=== PATIENT | male | born 1955 | race Hispanic/Latino ===

== ENCOUNTER 2019-03-29 10:43 | Emergency (ER) | payer BC, SELFPAY ==
[2019-03-29] MEDS ORDERED: Acetaminophen 500 MG TAB ONE (11:36)
--- NOTE | 2019-03-29 11:51 | RAD ---
PA AND LATERAL VIEWS CHEST: HISTORY: Neck pain, back pain, trauma. FINDINGS: Comparison is made with the exam of 11/17/2013. There are changes of median sternotomy. The heart is enlarged. The lungs are expanded without lobar consolidation, pneumothoraces, or pleural effusions. There is no evidence of duke pulmonary edema. No acute osseous abnormalities are seen. IMPRESSION: No acute process. POS: [facility]
== END 2019-03-29 12:11 | disposition home or self-care (01) ==
LOC: ERS 10:43
DX: S16.1XXA Strain of muscle, fascia and tendon at neck level, initial encounter (principal); S29.012A Strain of muscle and tendon of back wall of thorax, initial encounter; I10 Essential (primary) hypertension; Z87.891 Personal history of nicotine dependence; V89.2XXA Person injured in unspecified motor-vehicle accident, traffic, initial encounter
CPT/HCPCS: 71046

== ENCOUNTER 2021-04-10 11:17 | Inpatient (IN) | payer SELFPAY ==
[~2021-04-10 11:17] MED LIST: Iopamidol 370 76% 100 ML VIAL ONE
[2021-04-10] MEDS ORDERED: Cefepime 2 GM VIAL ONE (11:51)
[2021-04-10 11:58] LABS: Hemoglobin 13.2 g/dL (14.0-18.0); Mean Corpuscular HGB CONC 35.5 g/dL (32.0-36.0); Mean Corpuscular Hemoglobin 35.2 pg (27.0-31.0); Mean Corpuscular Volume 99.2 fL (78.0-98.0); Mean Platelet Volume 7.9 fL (7.4-10.4); Platelet Count 205 thou/uL (130-400); RBC Distribution Width 11.2 % (11.5-14.5); Red Blood Cell (RBC) Count 3.76 mill/uL (4.70-6.10); White Blood Cell (WBC) Count 17.8 thou/uL (4.8-10.8)
[2021-04-10] MEDS ORDERED: metroNIDAZOLE 500 MG in Premix Bag 1 BAG IVPB SCH (12:00)
[2021-04-10] MEDS ORDERED: VANCOMYCIN 2 GRAM/400 ML BAG 2 GM in Premix Bag 1 BAG IVPB SCH (12:00)
[2021-04-10 12:16] LABS: Band 29 % (5-11); Eosinophils 1 % (0-10); Lymphocytes 2 % (21-51); MDiff Complete? YES; Monocytes 6 % (0-10); Neutrophil 62 % (42-75); RBC Morphology Normal
[2021-04-10 12:19] LABS: ALT (SGPT) 10 U/L (8-55); AST (SGOT) 9 U/L (5-34); Alkaline Phosphatase 77 U/L (40-110); Anion Gap 20 mmol/L (10-20); BUN (Urea Nitrogen) 40 mg/dL (8.4-25.7); Bilirubin, Total 1.4 mg/dL (0.2-1.2); Calc. Creatinine Clearance 0 mL/min (70-130); Calcium 9.3 mg/dL (7.8-10.44); Carbon Dioxide 22 mmol/L (23-31); Chloride 88 mmol/L (98-107); Globulin 3.5 g/dL (2.4-3.5); Potassium 4.7 mmol/L (3.5-5.1); Protein, Total 7.5 g/dL (5.8-8.1); Sodium 125 mmol/L (136-145)
[2021-04-10 12:30] LABS: Glucose 627 mg/dL (80-115)
[2021-04-10] MEDS ORDERED: Insulin Regular 300 UNITS/3 ML VIAL ONE (13:40)
[2021-04-10 14:50] LABS: Bilirubin Negative (Negative); Blood, Urine Negative (Negative); Clarity Clear (Clear); Glucose, Urine (Dipstick) Greater than 1000 mg/dL (Negative); Ketone, Urine Negative (Negative); Leukocyte Negative Leu/uL (Negative); Nitrite Negative (Negative); Protein, Urine (Dipstick) 20 mg/dL (Neg-Trace); Specific Gravity, Urine 1.022 (1.002-1.036); Urobilinogen Normal mg/dL (Less than 2)
[2021-04-10] MEDS ORDERED: Midazolam HCl 2 mg/2 ml Vial ONE (16:12)
[2021-04-10] MEDS ORDERED: Fentanyl 100 MCG/2 ML VIAL ONE (16:12)
[2021-04-10 16:16] LABS: SARS-CoV-2 NAA Rapid Test Not Detected (NotDetected)
[2021-04-10] MEDS ORDERED: Bupivacaine 0.25% HCL 30 ML VIAL ONE (16:22)
[2021-04-10] MEDS ORDERED: PROPOFOL 200 MG/20 ML VIAL ONE (16:44)
[2021-04-10] MEDS ORDERED: Metoclopramide HCl 10 MG/2 ML VIAL ONE (16:44)
[2021-04-10] MEDS ORDERED: Ondansetron PF 4 MG/2 ML Vial ONE (16:44)
[2021-04-10] MEDS ORDERED: Succinylcholine 200 MG/10 ml SYRINGE FS ONE (16:44)
[2021-04-10] MEDS ORDERED: PHENYLEPHRINE-NS 100 MCG/ML 10 ML SYRINGE ONE (16:44)
[2021-04-10] MEDS ORDERED: ePHEDrine 50 MG/ML VIAL ONE (16:44)
[2021-04-10] MEDS ORDERED: Lidocaine 1% PF 5 ML VIAL ONE (16:44)
[2021-04-10] MEDS ORDERED: Metoprolol Tartrate 5 MG/5 ML VIAL ONE (16:44)
[2021-04-10] MEDS ORDERED: Promethazine HCl 25 MG/ML VIAL IM PRN (18:36)
[2021-04-10] MEDS ORDERED: Promethazine HCl 25 MG/ML VIAL IVPB PRN (18:36)
[2021-04-10] MEDS ORDERED: Ondansetron HCl/PF 4 MG/2 ML Vial IVP PRN (18:36)
[2021-04-10] MEDS ORDERED: Dextrose 5% in Water 1,000 ML IV PRN (20:08)
[2021-04-10] MEDS ORDERED: Dextrose 50% Abboject 50 ML SYRINGE SLOW IVP PRN (20:08)
[2021-04-10] MEDS ORDERED: HumaLOG 300 UNITS/3 ML VIAL SC PRN ×2 (20:08)
[2021-04-10] MEDS ORDERED: Acetaminophen 650 MG Suppository PR PRN (20:12)
[2021-04-10] MEDS ORDERED: Ondansetron ODT 4 MG TAB PO PRN (20:12)
[2021-04-10] MEDS ORDERED: Ondansetron PF 4 MG/2 ML Vial IVP PRN (20:12)
[2021-04-10] MEDS ORDERED: Piperacillin/Tazobactam 3.375 GM in Sodium Chloride 0.9% 100 ML IVPB SCH ×2 (20:15→21:15)
[2021-04-10] MEDS ORDERED: HumaLOG 300 UNITS/3 ML VIAL ONE (20:21)
[2021-04-10] MEDS ORDERED: Piperacillin/Tazobactam 3.375 GM VIAL ONE (20:23)
[2021-04-10] MEDS ORDERED: Sodium Chloride 0.9% 100 ML ONE (20:27)
[2021-04-10] MEDS: Sodium Chloride 0.9% 1,000 ML IV SCH (20:34)
[2021-04-10 20:41] LABS: Lactic Acid 1.8 mmol/L (0.5-2.2)
[2021-04-10 20:53] LABS: Albumin 3.1 g/dL (3.4-4.8); Alkaline Phosphatase 59 U/L (40-110); Anion Gap 18 mmol/L (10-20); BUN (Urea Nitrogen) 33 mg/dL (8.4-25.7); Bilirubin, Total 0.8 mg/dL (0.2-1.2); Calc. Creatinine Clearance 65 mL/min (70-130); Calcium 8.2 mg/dL (7.8-10.44); Carbon Dioxide 19 mmol/L (23-31); Chloride 99 mmol/L (98-107); Globulin 2.7 g/dL (2.4-3.5); Glucose 351 mg/dL (80-115); Potassium 4.4 mmol/L (3.5-5.1); Protein, Total 5.8 g/dL (5.8-8.1); Sodium 132 mmol/L (136-145)
[2021-04-10 20:54] LABS: ALT (SGPT) 10 U/L (8-55); AST (SGOT) 10 U/L (5-34); Band 28 % (5-11); Hemoglobin 10.7 g/dL (14.0-18.0); Lymphocytes 3 % (21-51); MDiff Complete? YES; Macrocytosis SLIGHT = 6-15 cells (100X) (0-5/hpf); Mean Corpuscular HGB CONC 34.6 g/dL (32.0-36.0); Mean Corpuscular Hemoglobin 34.8 pg (27.0-31.0); Mean Platelet Volume 7.5 fL (7.4-10.4); Metamyelocyte 2 % (0-0); Monocytes 11 % (0-10); Myelocyte 1 % (0-0); Neutrophil 54 % (42-75); Platelet Count 160 thou/uL (130-400); Platelet Morphology Comment Appears Adequate; RBC Distribution Width 11.2 % (11.5-14.5); Reactive Lymphocytes 1 % (0-10); Red Blood Cell (RBC) Count 3.08 mill/uL (4.70-6.10); White Blood Cell (WBC) Count 12.2 thou/uL (4.8-10.8)
[2021-04-10 20:55] LABS: Toxic Granulation SLIGHT; Vacuoles SLIGHT
[2021-04-11] MEDS: Piperacillin/Tazobactam 3.375 GM in Sodium Chloride 0.9% 100 ML IVPB SCH ×3 (01:13→17:52)
[2021-04-11 04:37] LABS: Anion Gap 17 mmol/L (10-20); BUN (Urea Nitrogen) 29 mg/dL (8.4-25.7); Calc. Creatinine Clearance 68 mL/min (70-130); Carbon Dioxide 18 mmol/L (23-31); Chloride 101 mmol/L (98-107); Glucose 278 mg/dL (80-115); Potassium 3.8 mmol/L (3.5-5.1); Sodium 132 mmol/L (136-145)
[2021-04-11 04:50] LABS: Band 32 % (5-11); Hemoglobin 10.5 g/dL (14.0-18.0); Lymphocytes 11 % (21-51); MDiff Complete? YES; Mean Corpuscular HGB CONC 33.4 g/dL (32.0-36.0); Mean Corpuscular Hemoglobin 33.6 pg (27.0-31.0); Mean Platelet Volume 7.6 fL (7.4-10.4); Monocytes 8 % (0-10); Neutrophil 49 % (42-75); Platelet Count 168 thou/uL (130-400); Platelet Morphology Comment Appears Adequate; RBC Distribution Width 11.3 % (11.5-14.5); Red Blood Cell (RBC) Count 3.13 mill/uL (4.70-6.10); White Blood Cell (WBC) Count 10.3 thou/uL (4.8-10.8)
[2021-04-11] MEDS: Sodium Chloride 0.9% 1,000 ML IV SCH ×2 (07:42→17:56)
[2021-04-11] MEDS: Acetaminophen 325 MG TAB PO PRN ×2 (11:43→20:51)
[2021-04-11] MEDS ORDERED: Dextrose 5% in Water 1,000 ML IV PRN (12:35)
[2021-04-11] MEDS ORDERED: Dextrose 50% Abboject 50 ML SYRINGE SLOW IVP PRN (12:35)
[2021-04-11] MEDS: VANCOMYCIN 1.75 GM/350 ML BAG 1.75 GM in Premix Bag 1 BAG IVPB SCH (14:46)
[2021-04-11] MEDS: HumaLOG 300 UNITS/3 ML VIAL SC PRN ×2 (17:50→20:51)
[2021-04-12] MEDS: Piperacillin/Tazobactam 3.375 GM in Sodium Chloride 0.9% 100 ML IVPB SCH ×3 (00:54→17:39)
[2021-04-12] MEDS: Sodium Chloride 0.9% 1,000 ML IV SCH (01:02)
[2021-04-12] MEDS: HumaLOG 300 UNITS/3 ML VIAL SC PRN ×3 (06:21→21:12)
[2021-04-12] MEDS: Morphine 4 MG/ML VIAL SLOW IVP PRN ×2 (06:37→12:17)
[2021-04-12 08:02] LABS: #Eosinphils 0.2 thou/uL (0.0-0.7); #Lymphocytes 1.1 thou/uL (1.20-3.40); #Neutrophils 9.3 thou/uL (1.40-6.50); %Basophils 0.4 % (0.0-1.0); %Eosinophils 1.5 % (0.0-10.0); %Lymphocytes 9.5 % (21.0-51.0); %Monocytes 8.3 % (0.0-10.0); %Neutrophils 80.3 % (42.0-75.0); Hemoglobin 10.7 g/dL (14.0-18.0); Mean Corpuscular HGB CONC 34.4 g/dL (32.0-36.0); Mean Corpuscular Hemoglobin 34.7 pg (27.0-31.0); Mean Platelet Volume 7.8 fL (7.4-10.4); Platelet Count 207 thou/uL (130-400); RBC Distribution Width 11.3 % (11.5-14.5); Red Blood Cell (RBC) Count 3.09 mill/uL (4.70-6.10); White Blood Cell (WBC) Count 11.6 thou/uL (4.8-10.8)
[2021-04-12 08:18] LABS: Anion Gap 15 mmol/L (10-20); BUN (Urea Nitrogen) 23 mg/dL (8.4-25.7); Calc. Creatinine Clearance 82 mL/min (70-130); Calcium 8.1 mg/dL (7.8-10.44); Carbon Dioxide 21 mmol/L (23-31); Chloride 105 mmol/L (98-107); Glucose 231 mg/dL (80-115); Potassium 3.8 mmol/L (3.5-5.1); Sodium 137 mmol/L (136-145)
[2021-04-12] MEDS ORDERED: FLU VACC QS2021-22(6MOS UP)/PF 60 MCG/0.5 ML SYRINGE IM ONE (09:00)
[2021-04-12] MEDS: Acetaminophen 325 MG TAB PO PRN (09:51)
[2021-04-12] MEDS: Lantus 1000 UNITS/10 ML VIAL SC SCH (12:18)
[2021-04-12] MEDS: VANCOMYCIN 1.25 GM/250 ML BAG 1.25 GM in Premix Bag 1 BAG IVPB SCH (15:40)
[2021-04-12] MEDS ORDERED: Lidocaine 4% Topical Sol 50 ML BOT TOP PRN (17:11)
[2021-04-12] MEDS: Carvedilol 3.125 MG TAB PO SCH (21:11)
[2021-04-12] MEDS: Simvastatin 5 MG TAB PO SCH (21:11)
[2021-04-13] MEDS: Piperacillin/Tazobactam 3.375 GM in Sodium Chloride 0.9% 100 ML IVPB SCH ×3 (01:14→17:26)
[2021-04-13] MEDS: VANCOMYCIN 1.25 GM/250 ML BAG 1.25 GM in Premix Bag 1 BAG IVPB SCH ×2 (01:14→13:06)
[2021-04-13 05:01] LABS: #Basophils 0.1 thou/uL (0.0-0.2); #Eosinphils 0.2 thou/uL (0.0-0.7); #Lymphocytes 1.9 thou/uL (1.20-3.40); #Monocytes 1.4 thou/uL (0.11-0.59); #Neutrophils 7.6 thou/uL (1.40-6.50); %Basophils 0.6 % (0.0-1.0); %Eosinophils 1.7 % (0.0-10.0); %Lymphocytes 16.9 % (21.0-51.0); %Monocytes 12.4 % (0.0-10.0); %Neutrophils 68.3 % (42.0-75.0); Hemoglobin 10.6 g/dL (14.0-18.0); Mean Corpuscular HGB CONC 34.9 g/dL (32.0-36.0); Mean Corpuscular Hemoglobin 35.1 pg (27.0-31.0); Mean Platelet Volume 7.4 fL (7.4-10.4); Platelet Count 224 thou/uL (130-400); RBC Distribution Width 11.4 % (11.5-14.5); White Blood Cell (WBC) Count 11.1 thou/uL (4.8-10.8)
[2021-04-13 05:27] LABS: Anion Gap 15 mmol/L (10-20); BUN (Urea Nitrogen) 19 mg/dL (8.4-25.7); Calc. Creatinine Clearance 85 mL/min (70-130); Calcium 8.2 mg/dL (7.8-10.44); Carbon Dioxide 21 mmol/L (23-31); Chloride 103 mmol/L (98-107); Glucose 214 mg/dL (80-115); Sodium 135 mmol/L (136-145)
[2021-04-13] MEDS: HumaLOG 300 UNITS/3 ML VIAL SC PRN ×4 (07:33→22:06)
[2021-04-13] MEDS: VANCOMYCIN 1.75 GM/350 ML BAG 1.75 GM in Premix Bag 1 BAG IVPB SCH (08:00)
[2021-04-13] MEDS: Lisinopril/Hydrochlorothiazide 20/25 mg Tablet PO SCH (08:15)
[2021-04-13] MEDS: Carvedilol 3.125 MG TAB PO SCH ×2 (08:16→20:29)
[2021-04-13] MEDS: Lantus 1000 UNITS/10 ML VIAL SC SCH (08:29)
[2021-04-13] MEDS: Morphine 4 MG/ML VIAL SLOW IVP PRN ×3 (09:17→20:29)
[2021-04-13] MEDS: cefTRIAXone\\ROCEPHIN 2 GM in Sodium Chloride 0.9% 100 ML IVPB SCH (17:59)
[2021-04-13] MEDS: metroNIDAZOLE 500 MG TAB PO SCH (20:29)
[2021-04-13] MEDS: Simvastatin 5 MG TAB PO SCH (20:29)
[2021-04-14 05:22] LABS: #Basophils 0.1 thou/uL (0.0-0.2); #Eosinphils 0.3 thou/uL (0.0-0.7); #Lymphocytes 1.5 thou/uL (1.20-3.40); #Neutrophils 5.6 thou/uL (1.40-6.50); %Basophils 0.9 % (0.0-1.0); %Eosinophils 3.3 % (0.0-10.0); %Lymphocytes 17.8 % (21.0-51.0); %Neutrophils 66.1 % (42.0-75.0); Hemoglobin 10.3 g/dL (14.0-18.0); Mean Corpuscular HGB CONC 32.7 g/dL (32.0-36.0); Mean Platelet Volume 7.7 fL (7.4-10.4); Platelet Count 219 thou/uL (130-400); RBC Distribution Width 11.5 % (11.5-14.5); Red Blood Cell (RBC) Count 3.13 mill/uL (4.70-6.10); White Blood Cell (WBC) Count 8.5 thou/uL (4.8-10.8)
[2021-04-14 06:00] LABS: Anion Gap 13 mmol/L (10-20); BUN (Urea Nitrogen) 18 mg/dL (8.4-25.7); Calc. Creatinine Clearance 106 mL/min (70-130); Calcium 8.4 mg/dL (7.8-10.44); Carbon Dioxide 23 mmol/L (23-31); Chloride 103 mmol/L (98-107); Glucose 188 mg/dL (80-115); Potassium 3.9 mmol/L (3.5-5.1); Sodium 135 mmol/L (136-145)
[2021-04-14] MEDS: Carvedilol 3.125 MG TAB PO SCH ×2 (08:21→21:21)
[2021-04-14] MEDS: Lantus 1000 UNITS/10 ML VIAL SC SCH (08:21)
[2021-04-14] MEDS: Lisinopril/Hydrochlorothiazide 20/25 mg Tablet PO SCH (08:21)
[2021-04-14] MEDS: metroNIDAZOLE 500 MG TAB PO SCH ×3 (08:21→21:21)
[2021-04-14] MEDS: Acetaminophen 325 MG TAB PO PRN (10:36)
[2021-04-14] MEDS: HumaLOG 300 UNITS/3 ML VIAL SC PRN ×3 (12:05→21:18)
[2021-04-14] MEDS: cefTRIAXone\\ROCEPHIN 2 GM in Sodium Chloride 0.9% 100 ML IVPB SCH (16:32)
[2021-04-14] MEDS ORDERED: Lantus 1000 UNITS/10 ML VIAL SC SCH (21:00)
[2021-04-14] MEDS: Enoxaparin Sodium 40 MG/0.4 ML SYRINGE SC SCH (21:18)
[2021-04-14] MEDS: Simvastatin 5 MG TAB PO SCH (21:21)
[2021-04-15] MEDS: HumaLOG 300 UNITS/3 ML VIAL SC PRN ×2 (05:58→17:30)
[2021-04-15] MEDS ORDERED: Senokot S 8.6-50 MG TAB PO PRN (07:52)
[2021-04-15] MEDS ORDERED: Artificial Tear Sol 15 ML BOT EA EYE PRN (07:52)
[2021-04-15] MEDS ORDERED: GUAIFENESIN SF SOLN 200 MG/10 ML UDCUP PO PRN (07:52)
[2021-04-15] MEDS ORDERED: Hydrocerin (Eucerin) Cream 120 gm Jar TOP PRN (07:52)
[2021-04-15] MEDS ORDERED: Loperamide HCl 2 MG CAP PO PRN (07:52)
[2021-04-15] MEDS ORDERED: Calcium Carbonate 500 MG ChewTAB PO PRN (07:52)
[2021-04-15] MEDS ORDERED: Zolpidem Tartrate 5 MG TAB PO PRN (07:52)
[2021-04-15] MEDS ORDERED: hydrALAZINE 20 MG/ML VIAL SLOW IVP PRN (07:52)
[2021-04-15] MEDS ORDERED: Bisacodyl 5 MG TAB PO PRN (07:52)
[2021-04-15] MEDS ORDERED: Sodium Chloride 0.65% Nasal 44 ML BOT EA NARE PRN (07:52)
[2021-04-15] MEDS ORDERED: Cepastat Lozenges 1 LOZ PO PRN (07:52)
[2021-04-15] MEDS ORDERED: Loratadine 10 MG TAB PO PRN (07:52)
[2021-04-15] MEDS: Lantus 1000 UNITS/10 ML VIAL SC SCH ×2 (09:19→21:25)
[2021-04-15] MEDS: Carvedilol 3.125 MG TAB PO SCH ×2 (09:20→21:24)
[2021-04-15] MEDS: metroNIDAZOLE 500 MG TAB PO SCH ×3 (09:20→21:24)
[2021-04-15] MEDS: Saccharomyces boulardii 250 MG CAP PO SCH (09:20)
[2021-04-15] MEDS: Lisinopril/Hydrochlorothiazide 20/25 mg Tablet PO SCH (09:20)
[2021-04-15] MEDS: HYDROcodone/Acetaminophen 5/325 mg Tablet PO PRN ×2 (09:34→21:26)
[2021-04-15] MEDS: cefTRIAXone\\ROCEPHIN 2 GM in Sodium Chloride 0.9% 100 ML IVPB SCH (17:30)
[2021-04-15] MEDS: Enoxaparin Sodium 40 MG/0.4 ML SYRINGE SC SCH (21:24)
[2021-04-15] MEDS: Simvastatin 5 MG TAB PO SCH (21:26)
[2021-04-16 06:31] LABS: #Eosinphils 0.2 thou/uL (0.0-0.7); #Lymphocytes 1.5 thou/uL (1.20-3.40); #Monocytes 0.8 thou/uL (0.11-0.59); #Neutrophils 5.3 thou/uL (1.40-6.50); %Basophils 0.6 % (0.0-1.0); %Eosinophils 2.9 % (0.0-10.0); %Lymphocytes 18.8 % (21.0-51.0); %Monocytes 10.1 % (0.0-10.0); %Neutrophils 67.7 % (42.0-75.0); Hemoglobin 10.9 g/dL (14.0-18.0); Mean Corpuscular HGB CONC 33.4 g/dL (32.0-36.0); Mean Corpuscular Hemoglobin 33.5 pg (27.0-31.0); Mean Platelet Volume 7.4 fL (7.4-10.4); Platelet Count 328 thou/uL (130-400); RBC Distribution Width 11.7 % (11.5-14.5); Red Blood Cell (RBC) Count 3.24 mill/uL (4.70-6.10); White Blood Cell (WBC) Count 7.8 thou/uL (4.8-10.8)
[2021-04-16 06:54] LABS: Anion Gap 11 mmol/L (10-20); BUN (Urea Nitrogen) 14 mg/dL (8.4-25.7); CRP (Inflammatory) 9.42 mg/dL (= or < 0.5); Calc. Creatinine Clearance 94 mL/min (70-130); Calcium 8.8 mg/dL (7.8-10.44); Carbon Dioxide 27 mmol/L (23-31); Chloride 101 mmol/L (98-107); Glucose 187 mg/dL (80-115); Magnesium 1.9 mg/dL (1.6-2.6); Phosphorus 3.8 mg/dL (2.3-4.7); Potassium 3.8 mmol/L (3.5-5.1); Sodium 135 mmol/L (136-145)
[2021-04-16] MEDS: Carvedilol 3.125 MG TAB PO SCH ×2 (09:04→21:24)
[2021-04-16] MEDS: Lisinopril/Hydrochlorothiazide 20/25 mg Tablet PO SCH (09:04)
[2021-04-16] MEDS: Saccharomyces boulardii 250 MG CAP PO SCH (09:04)
[2021-04-16] MEDS: metroNIDAZOLE 500 MG TAB PO SCH ×3 (09:04→21:24)
[2021-04-16] MEDS: Lantus 1000 UNITS/10 ML VIAL SC SCH ×2 (09:05→21:26)
[2021-04-16] MEDS: HumaLOG 300 UNITS/3 ML VIAL SC PRN ×3 (11:58→21:23)
[2021-04-16] MEDS: cefTRIAXone\\ROCEPHIN 2 GM in Sodium Chloride 0.9% 100 ML IVPB SCH (17:19)
[2021-04-16] MEDS: Simvastatin 5 MG TAB PO SCH (21:25)
[2021-04-16] MEDS: Enoxaparin Sodium 40 MG/0.4 ML SYRINGE SC SCH (21:25)
[2021-04-17] MEDS: HYDROcodone/Acetaminophen 5/325 mg Tablet PO PRN ×2 (06:03→20:57)
[2021-04-17] MEDS: HumaLOG 300 UNITS/3 ML VIAL SC PRN ×4 (06:07→20:55)
[2021-04-17] MEDS: Saccharomyces boulardii 250 MG CAP PO SCH (09:16)
[2021-04-17] MEDS: metroNIDAZOLE 500 MG TAB PO SCH ×3 (09:16→20:54)
[2021-04-17] MEDS: Carvedilol 3.125 MG TAB PO SCH ×2 (09:16→20:54)
[2021-04-17] MEDS: Lantus 1000 UNITS/10 ML VIAL SC SCH ×2 (09:17→20:54)
[2021-04-17] MEDS: Lisinopril/Hydrochlorothiazide 20/25 mg Tablet PO SCH (10:04)
[2021-04-17] MEDS: Morphine 4 MG/ML VIAL SLOW IVP PRN (14:16)
[2021-04-17] MEDS: cefTRIAXone\\ROCEPHIN 2 GM in Sodium Chloride 0.9% 100 ML IVPB SCH (17:23)
[2021-04-17] MEDS: Simvastatin 5 MG TAB PO SCH (20:54)
[2021-04-17] MEDS: Enoxaparin Sodium 40 MG/0.4 ML SYRINGE SC SCH (20:54)
[2021-04-18] MEDS: HYDROcodone/Acetaminophen 5/325 mg Tablet PO PRN ×3 (05:39→20:50)
[2021-04-18 05:40] LABS: #Basophils 0.1 thou/uL (0.0-0.2); #Eosinphils 0.3 thou/uL (0.0-0.7); #Monocytes 0.9 thou/uL (0.11-0.59); #Neutrophils 6.7 thou/uL (1.40-6.50); %Basophils 0.8 % (0.0-1.0); %Eosinophils 3.4 % (0.0-10.0); %Lymphocytes 20.2 % (21.0-51.0); %Monocytes 9.3 % (0.0-10.0); %Neutrophils 66.4 % (42.0-75.0); Hemoglobin 11.6 g/dL (14.0-18.0); Mean Corpuscular HGB CONC 34.4 g/dL (32.0-36.0); Mean Corpuscular Hemoglobin 33.9 pg (27.0-31.0); Mean Corpuscular Volume 98.5 fL (78.0-98.0); Mean Platelet Volume 7.1 fL (7.4-10.4); Platelet Count 401 thou/uL (130-400); RBC Distribution Width 11.6 % (11.5-14.5); Red Blood Cell (RBC) Count 3.43 mill/uL (4.70-6.10)
[2021-04-18 05:58] LABS: Anion Gap 11 mmol/L (10-20); BUN (Urea Nitrogen) 16 mg/dL (8.4-25.7); CRP (Inflammatory) 6.31 mg/dL (= or < 0.5); Calc. Creatinine Clearance 89 mL/min (70-130); Calcium 9.3 mg/dL (7.8-10.44); Carbon Dioxide 27 mmol/L (23-31); Chloride 98 mmol/L (98-107); Glucose 163 mg/dL (80-115); Potassium 3.9 mmol/L (3.5-5.1); Sodium 132 mmol/L (136-145)
[2021-04-18] MEDS: metroNIDAZOLE 500 MG TAB PO SCH ×3 (09:10→20:50)
[2021-04-18] MEDS: Lisinopril/Hydrochlorothiazide 20/25 mg Tablet PO SCH (09:10)
[2021-04-18] MEDS: Carvedilol 3.125 MG TAB PO SCH ×2 (09:10→20:49)
[2021-04-18] MEDS: Saccharomyces boulardii 250 MG CAP PO SCH (09:10)
[2021-04-18] MEDS: Lantus 1000 UNITS/10 ML VIAL SC SCH ×2 (09:11→21:00)
[2021-04-18] MEDS: HumaLOG 300 UNITS/3 ML VIAL SC PRN ×3 (12:31→21:01)
[2021-04-18 15:20] LABS: SARS-CoV-2 PCR by NAA Not Detected (NotDetected)
[2021-04-18] MEDS: cefTRIAXone\\ROCEPHIN 2 GM in Sodium Chloride 0.9% 100 ML IVPB SCH (17:00)
[2021-04-18] MEDS: Simvastatin 5 MG TAB PO SCH (20:50)
[2021-04-18] MEDS: Enoxaparin Sodium 40 MG/0.4 ML SYRINGE SC SCH (20:53)
[2021-04-19] MEDS: HYDROcodone/Acetaminophen 5/325 mg Tablet PO PRN ×2 (04:36→20:34)
[2021-04-19] MEDS: Lisinopril/Hydrochlorothiazide 20/25 mg Tablet PO SCH (08:10)
[2021-04-19] MEDS: Saccharomyces boulardii 250 MG CAP PO SCH (08:10)
[2021-04-19] MEDS: Carvedilol 3.125 MG TAB PO SCH ×2 (08:10→20:34)
[2021-04-19] MEDS: metroNIDAZOLE 500 MG TAB PO SCH ×3 (08:10→20:51)
[2021-04-19] MEDS: Lantus 1000 UNITS/10 ML VIAL SC SCH ×2 (08:17→20:35)
[2021-04-19] MEDS: HumaLOG 300 UNITS/3 ML VIAL SC PRN ×3 (12:45→20:36)
[2021-04-19] MEDS: cefTRIAXone\\ROCEPHIN 2 GM in Sodium Chloride 0.9% 100 ML IVPB SCH (17:33)
[2021-04-19] MEDS: Simvastatin 5 MG TAB PO SCH (20:34)
[2021-04-19] MEDS: Enoxaparin Sodium 40 MG/0.4 ML SYRINGE SC SCH (20:45)
[2021-04-20] MEDS: HYDROcodone/Acetaminophen 5/325 mg Tablet PO PRN ×2 (05:16→22:30)
[2021-04-20 05:26] LABS: #Basophils 0.1 thou/uL (0.0-0.2); #Eosinphils 0.4 thou/uL (0.0-0.7); #Lymphocytes 1.9 thou/uL (1.20-3.40); #Monocytes 0.9 thou/uL (0.11-0.59); #Neutrophils 5.1 thou/uL (1.40-6.50); %Basophils 1.4 % (0.0-1.0); %Eosinophils 4.4 % (0.0-10.0); %Lymphocytes 23.1 % (21.0-51.0); %Monocytes 10.2 % (0.0-10.0); %Neutrophils 60.9 % (42.0-75.0); Hemoglobin 12.2 g/dL (14.0-18.0); Mean Corpuscular HGB CONC 33.1 g/dL (32.0-36.0); Mean Corpuscular Hemoglobin 32.6 pg (27.0-31.0); Mean Corpuscular Volume 98.5 fL (78.0-98.0); Mean Platelet Volume 6.6 fL (7.4-10.4); Platelet Count 466 thou/uL (130-400); RBC Distribution Width 11.7 % (11.5-14.5); Red Blood Cell (RBC) Count 3.74 mill/uL (4.70-6.10); White Blood Cell (WBC) Count 8.4 thou/uL (4.8-10.8)
[2021-04-20 05:52] LABS: Anion Gap 12 mmol/L (10-20); BUN (Urea Nitrogen) 27 mg/dL (8.4-25.7); Calc. Creatinine Clearance 85 mL/min (70-130); Calcium 8.9 mg/dL (7.8-10.44); Carbon Dioxide 25 mmol/L (23-31); Chloride 99 mmol/L (98-107); Glucose 130 mg/dL (80-115); Potassium 4.3 mmol/L (3.5-5.1); Sodium 132 mmol/L (136-145)
[2021-04-20] MEDS: Lisinopril/Hydrochlorothiazide 20/25 mg Tablet PO SCH (08:35)
[2021-04-20] MEDS: Saccharomyces boulardii 250 MG CAP PO SCH (08:36)
[2021-04-20] MEDS: Lantus 1000 UNITS/10 ML VIAL SC SCH ×2 (08:36→22:13)
[2021-04-20] MEDS: metroNIDAZOLE 500 MG TAB PO SCH ×3 (08:36→22:06)
[2021-04-20] MEDS: Carvedilol 3.125 MG TAB PO SCH ×2 (08:36→22:06)
[2021-04-20] MEDS: Sodium Chloride 0.9% 1,000 ML IV SCH ×2 (09:30→22:18)
[2021-04-20] MEDS ORDERED: cefTRIAXone\\ROCEPHIN 2 GM VIAL ONE (16:29)
[2021-04-20] MEDS ORDERED: Sodium Chloride 0.9% 100 ML ONE (16:30)
[2021-04-20] MEDS: cefTRIAXone\\ROCEPHIN 2 GM in Sodium Chloride 0.9% 100 ML IVPB SCH (16:52)
[2021-04-20] MEDS ORDERED: Bupivacaine 0.25% HCL 30 ML VIAL ONE (17:15)
[2021-04-20] MEDS ORDERED: Fentanyl 100 MCG/2 ML VIAL ONE ×2 (17:20→19:47)
[2021-04-20] MEDS ORDERED: Phenylephrine 10 MG/ML VIAL ONE (17:20)
[2021-04-20] MEDS ORDERED: Lidocaine 1% PF 5 ML VIAL ONE (17:43)
[2021-04-20] MEDS ORDERED: Ondansetron PF 4 MG/2 ML Vial ONE (17:43)
[2021-04-20] MEDS ORDERED: PROPOFOL 200 MG/20 ML VIAL ONE (17:43)
[2021-04-20] MEDS ORDERED: Rocuronium Bromide 10 MG/ML (10ML VIAL) ONE (17:43)
[2021-04-20] MEDS ORDERED: Promethazine HCl 25 MG/ML VIAL IM PRN (19:23)
[2021-04-20] MEDS ORDERED: Ondansetron HCl/PF 4 MG/2 ML Vial IVP PRN (19:23)
[2021-04-20] MEDS ORDERED: Promethazine HCl 25 MG/ML VIAL IVPB PRN (19:23)
[2021-04-20] MEDS ORDERED: PACU-Morphine 4MG/ML VIAL SLOW IVP PRN (19:23)
[2021-04-20] MEDS: Simvastatin 5 MG TAB PO SCH (22:06)
[2021-04-20] MEDS: Enoxaparin Sodium 40 MG/0.4 ML SYRINGE SC SCH (22:07)
[2021-04-21] MEDS: HYDROcodone/Acetaminophen 5/325 mg Tablet PO PRN ×2 (03:05→14:15)
[2021-04-21] MEDS: HumaLOG 300 UNITS/3 ML VIAL SC PRN ×3 (06:08→17:30)
[2021-04-21] MEDS ORDERED: Morphine 4 MG/ML VIAL SLOW IVP PRN (09:43)
[2021-04-21] MEDS: metroNIDAZOLE 500 MG TAB PO SCH ×3 (09:55→19:55)
[2021-04-21] MEDS: Saccharomyces boulardii 250 MG CAP PO SCH (09:55)
[2021-04-21] MEDS: Lisinopril/Hydrochlorothiazide 20/25 mg Tablet PO SCH (09:55)
[2021-04-21] MEDS: Carvedilol 3.125 MG TAB PO SCH ×2 (09:55→19:55)
[2021-04-21] MEDS: Lantus 1000 UNITS/10 ML VIAL SC SCH ×2 (09:56→19:55)
[2021-04-21] MEDS: cefTRIAXone\\ROCEPHIN 2 GM in Sodium Chloride 0.9% 100 ML IVPB SCH (17:25)
[2021-04-21] MEDS: Enoxaparin Sodium 40 MG/0.4 ML SYRINGE SC SCH (19:54)
[2021-04-21] MEDS: Simvastatin 5 MG TAB PO SCH (19:55)
[2021-04-22 05:25] VITALS: BMI 27.6
[2021-04-22] MEDS: HYDROcodone/Acetaminophen 5/325 mg Tablet PO PRN (05:50)
[2021-04-22] MEDS: Lantus 1000 UNITS/10 ML VIAL SC SCH (07:59)
[2021-04-22] MEDS: Saccharomyces boulardii 250 MG CAP PO SCH (08:00)
[2021-04-22] MEDS: metroNIDAZOLE 500 MG TAB PO SCH ×3 (08:00→19:57)
[2021-04-22] MEDS: Carvedilol 3.125 MG TAB PO SCH ×2 (08:00→19:57)
[2021-04-22] MEDS: Lisinopril/Hydrochlorothiazide 20/25 mg Tablet PO SCH (08:00)
[2021-04-22] MEDS: HumaLOG 300 UNITS/3 ML VIAL SC PRN (13:08)
[2021-04-22] MEDS: metFORMIN 500 MG TAB PO SCH (17:01)
[2021-04-22] MEDS: glipiZIDE 5 MG TAB PO SCH (17:01)
[2021-04-22] MEDS: Enoxaparin Sodium 40 MG/0.4 ML SYRINGE SC SCH (19:57)
[2021-04-22] MEDS: Simvastatin 5 MG TAB PO SCH (19:57)
[2021-04-22] MEDS: Amoxicillin/Potassium Clav 875 MG TAB PO SCH (19:57)
[2021-04-23] MEDS: HYDROcodone/Acetaminophen 5/325 mg Tablet PO PRN (06:05)
[2021-04-23] MEDS: glipiZIDE 5 MG TAB PO SCH (06:05)
[2021-04-23] MEDS: metroNIDAZOLE 500 MG TAB PO SCH (08:56)
[2021-04-23] MEDS: metFORMIN 500 MG TAB PO SCH (08:56)
[2021-04-23] MEDS: Amoxicillin/Potassium Clav 875 MG TAB PO SCH (08:56)
[2021-04-23] MEDS: Carvedilol 3.125 MG TAB PO SCH (08:57)
[2021-04-23] MEDS: Saccharomyces boulardii 250 MG CAP PO SCH (08:57)
[2021-04-23] MEDS: Lisinopril/Hydrochlorothiazide 20/25 mg Tablet PO SCH (08:57)
[2021-04-23] MEDS ORDERED: Aspirin 81 mg Enteric Coated Tablet PO SCH (09:00)
[2021-04-23 12:40] VITALS: BP 126/75; TEMP 97.8
== END 2021-04-23 14:15 | disposition home or self-care (01) | DRG 854 ==
LOC: ERS 11:17 → SURG A 14:17 → PACU-TCU 20:22 → 2NO 22:05 → T4-B 04-15 12:26 → SURG A 04-20 20:48
PROVIDERS: ADMIT Family Medicine; ATTEND Internal Medicine
PROC: 0JBB0ZZ Excision of Perineum Subcutaneous Tissue and Fascia, Open Approach (ICD-10-PCS; principal; 2021-04-10)
PROC: 0JQB0ZZ Repair Perineum Subcutaneous Tissue and Fascia, Open Approach (ICD-10-PCS; 2021-04-20)
PROC: 0HB9XZZ Excision of Perineum Skin, External Approach (ICD-10-PCS; 2021-04-20)
DX: A40.8 Other streptococcal sepsis (principal); N17.9 Acute kidney failure, unspecified; I50.22 Chronic systolic (congestive) heart failure; E87.1 Hypo-osmolality and hyponatremia; Z20.822 Contact with and (suspected) exposure to COVID-19; R65.20 Severe sepsis without septic shock; E11.22 Type 2 diabetes mellitus with diabetic chronic kidney disease; N49.3 Fournier gangrene; I25.10 Atherosclerotic heart disease of native coronary artery without angina pectoris; E78.5 Hyperlipidemia, unspecified; E78.00 Pure hypercholesterolemia, unspecified; I08.1 Rheumatic disorders of both mitral and tricuspid valves; I25.5 Ischemic cardiomyopathy; N18.2 Chronic kidney disease, stage 2 (mild); E11.65 Type 2 diabetes mellitus with hyperglycemia; Z28.21 Immunization not carried out because of patient refusal; Z95.1 Presence of aortocoronary bypass graft; Z79.899 Other long term (current) drug therapy; Z79.84 Long term (current) use of oral hypoglycemic drugs
CPT/HCPCS: 36415; 36416; 72193; 80048; 80053; 80202; 81003; 83605; 83735; 84100; 85025; 86140; 87040; 87070; 87076; 87077; 87086; 87149; 87205; 88304; 93005; 93306; 93798; 96365; 96367; 96375; J0692; J0696; J1650; J1815; J2250; J2270; J2370; J2405; J2543; J2704; J2765; J3010; J3370; J3490; J7050; Q9967; S0020; U0002; U0003; U0005